=== PATIENT | female | born 2000 | race African-American/Black ===

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

== ENCOUNTER → 2021-02-12 | Emergency (ER) | payer MEDICAID ==
[~2021-02-12] VITALS: Ht 160 cm; Wt 83.6 kg
[2021-02-12 13:31] VITALS: BP 112/59
== END | disposition left against medical advice (07) ==
LOC: ER 13:30
DX: O26.892 Other specified pregnancy related conditions, second trimester (principal); R06.02 Shortness of breath; Z20.822 Contact with and (suspected) exposure to COVID-19; Z3A.16 16 weeks gestation of pregnancy; Z53.21 Procedure and treatment not carried out due to patient leaving prior to being seen by health care provider
CPT/HCPCS: 36415; 87426